=== PATIENT | female | born 1990 | race Caucasian/White ===

== ENCOUNTER → 2016-11-15 | Outpatient (CLI) | payer BC ==
[~2016-11-15] MED LIST: BCPILLS PO
== END | disposition home or self-care (01) ==
LOC: C.PAPS 09:22
PROVIDERS: ATTEND Physician Assistant
DX: Z01.419 Encounter for gynecological examination (general) (routine) without abnormal findings (principal)

== ENCOUNTER 2019-05-04 19:02 | Inpatient (IN) ==
[2019-05-04] MEDS ORDERED: OXYTOCIN 30 UNITS/500 ML BAG IV PRN ×2 (21:55→22:07)
[2019-05-04 22:16] LABS: Hematocrit (blood only) 42.7 % (37-47); Hemoglobin 14.6 g/dL (12.0-16.0); Mean Corpuscular Hemoglobin 31.5 pg (25-34); Mean Corpuscular Volume 92.2 fL (80-100); Mean Platelet Volume 10.8 fL (7.4-10.4); Platelet Count 269 K/uL (130-400); RDW Coefficient of Variation 13.8 % (11.5-14.5); RDW Standard Deviation 46.2 fL (36.4-46.3); Red Blood Count 4.63 M/uL (4.2-5.4); White Blood Count 14.21 K/uL (4.8-10.8)
[2019-05-04 22:19] LABS: Mean Corpuscular Hgb Conc 34.2 g/dL (32-36)
[2019-05-04] MEDS: LACTATED RINGER'S 1,000 ML IV PRN ×2 (22:22→23:21)
--- NOTE | 2019-05-04 22:23 | History & Physical Report ---
Date of Service May 04, 2019 Assessment & Plan (1) Normal labor: IUP at 40+ weeks in early labor with cervical change & labile BP's will admit for hydration and AROM once she is comfortable with epidural analgesia check PIH labs as well. History of Present Illness Primary Care Provider: Tiffany Greene DO Patient is a 29 yo white female EDC 04/29/19 who presents with with over 18 hours of contractions that she feels are now 5 mintues apart. no SPROM or bloody show. GBS -negative. complicated by GDM that was diet controlled. Patient has shown cervical change from 2 cm to 3 cm dilated. She denies any PIH symptoms but BP's have been labile since admission. 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 Beliefs That Will Affect Care: None marital status: Current Living Situation: Spouse Feels Safe at Home: Yes Safety Concerns: Feels Safe At This Time Smoking Status: Former smoker Tobacco Type: cigarettes ; packs per day: 0.5 ; Hx Alcohol Use: No Hx Substance Use: No Review of Systems All systems reviewed & are unremarkable except as noted in HPI & below Physical Exam Constitutional: WD/WN, vitals as above Respiratory: normal respiratory effort, lungs clear to auscultation Cardiovascular: RRR, no murmur, no edema Gastrointestinal (Abdomen): normal bowel sounds, soft, nontender, no hepatosplenomegaly Psychiatric: A+Ox3, euthymic affect Genitourinary: OB Exam Abdomen: + vertex, + estimated weight (7-8 pounds) and + irregular contractions (5-8 minutes apart) Manual OB Exam: + cervical dilation 3 cm, + cervical effacement 70% and + station -2 OB Exam Monitor Tracing: + external FHT monitor used, + external uterine monitor used, + category I and + normal FHT variability Results & Data Vital Signs (Past 12 Hours) Vital Signs Temp Pulse Resp BP 05/04/19 22:13 61 142/90 H 05/04/19 21:58 77 149/100 H 05/04/19 21:42 62 155/94 H 05/04/19 21:37 67 129/94 05/04/19 21:32 46 L 130/88 05/04/19 21:27 58 L 139/98 05/04/19 19:46 73 129/88 05/04/19 19:45 60 136/96 05/04/19 19:40 82 135/93 05/04/19 19:20 97.9 F 18 05/04/19 19:16 81 132/87 Code Status & VTE Plan VTE Prophylaxis Plan VTE Prophylaxis will be ordered: No
[2019-05-04] MEDS ORDERED: BUPIVACAINE 0.25% 30 ML VIAL ONE (22:28)
[2019-05-04] MEDS ORDERED: fentaNYL citrate 100 MCG/2 ML VIAL ONE (22:28)
[2019-05-04] MEDS ORDERED: ePHEDrine sulfate 50 MG/ML AMP ONE (22:28)
[2019-05-04] MEDS ORDERED: fentaNYL 2MCG/ML ROPIV 1.25MG/ML 100 ML BAG EPI ONE (22:28)
[2019-05-04 22:33] LABS: Creatinine Clr Calc Pharmacy 68.3 ml/min; Est GFR (African American) 83.5
--- NOTE | 2019-05-04 23:30 | Anesthesiology Consultation ---
Date of Service May 04, 2019 Assessment & Plan Chart Review Chart Review: Acceptable Risk for Labor Epidural Consults Requested none History Height/Weight Height: 5 ft 4 in Weight: 64.41 kg Allergies Allergy/AdvReac Type Severity Reaction Status Date / Time No Known Allergies Allergy Unknown Verified 05/04/19 19:18 Medications Home Medications Medication Instructions Recorded Confirmed Last Taken acetone (urine) test #50 ea 02/14/19 05/02/19 Unknown blood sugar diagnostic #125 ea 02/14/19 05/02/19 Unknown lancets #102 ea 02/14/19 05/02/19 Unknown vit-iron fum-folic ac 1 tab PO DAILY 05/04/19 05/04/19 05/04/19 [ Vitamin] Active Medications Generic Name Dose Route Start Last Admin Trade Name Freq PRN Reason Stop Dose Admin Lactated Ringer's 1,000 mls @ 125 mls/hr 05/04/19 21:55 05/04/19 23:25 Lr IV 05/06/19 21:54 125 mls/hr .Q8H PRN Infusion L&D Protocol Protocol Past Medical History Medical History History of chronic diarrhea History of constipation History of varicella Past Family History Family History Aunt Anemia Breast cancer Mother Endometriosis Uterine cancer Grandmother (Maternal) Heart murmur Father Hypertension Past Surgical History Surgical History History of wisdom tooth extraction S/P tonsillectomy and adenoidectomy Social History Smoking Status: Former smoker tobacco type: cigarettes Hx Alcohol Use: No Hx Substance Use: No substance use type: does not use Physical Exam Vital Signs Last Vital Signs Temp 36.5 C 05/04/19 21:41 Pulse 88 05/04/19 23:29 Resp 16 05/04/19 23:23 BP 141/80 H 05/04/19 23:29 Pulse Ox 96 05/04/19 23:24 Testing Laboratory Results 05/04/19 22:07 05/04/19 22:07
[2019-05-04] MEDS ORDERED: NALOXONE HCL 0.4 MG/1 ML VIAL/CARP IV PRN (23:32)
[2019-05-04] MEDS ORDERED: DiphenhydrAMINE HCL 50 MG/ML VIAL IV PRN (23:32)
[2019-05-04] MEDS ORDERED: ePHEDrine sulfate 50 MG/ML AMP IV PRN (23:32)
[2019-05-04] MEDS ORDERED: NALOXONE HCL 1 MG in SODIUM CHLORIDE 0.9% 1000ML 1,000 ML IV PRN (23:32)
[2019-05-04] MEDS ORDERED: NALBUPHINE HCL INJ 10 MG/ML AMP IV PRN (23:32)
[2019-05-04] MEDS ORDERED: fentaNYL 2MCG/ML ROPIV 1.25MG/ML 100 ML BAG EPI PRN (23:32)
[2019-05-05] MEDS ORDERED: BENZOCAINE 20% AER SPR 82.5 GM CAN EXT PRN (06:59)
[2019-05-05] MEDS ORDERED: OXYTOCIN 30 UNITS/500 ML BAG IV PRN (06:59)
[2019-05-05] MEDS ORDERED: SUPERCREAM 0.870% 15 GM JAR EXT PRN (06:59)
[2019-05-05] MEDS ORDERED: HYDROCORTISONE ACETATE 25 MG SUPP PR PRN (06:59)
[2019-05-05] MEDS ORDERED: DIPHTHERIA/TETANUS/PERTUSSIS 0.5 ML SYR/VIAL IM ONE (06:59)
[2019-05-05] MEDS ORDERED: ACETAMINOPHEN 325 MG TAB PO PRN (06:59)
[2019-05-05] MEDS ORDERED: OXYCODONE/ACETAMINOPHEN 5mg/325mg TAB PO PRN (06:59)
[2019-05-05] MEDS: PRENATAL VITAMIN 1 TAB PO SCH (08:11)
[2019-05-05] MEDS: DOCUSATE SODIUM 100 MG CAP PO SCH ×2 (08:11→20:18)
--- NOTE | 2019-05-05 08:34 | Anesthesiology Progress Note ---
Date of Service May 05, 2019 Anesthesia Post Procedure Vital Signs Vital Signs: Temp Pulse Resp BP Pulse Ox 05/05/19 08:21 75 135/86 05/05/19 08:07 71 132/81 05/05/19 07:55 20 05/05/19 07:51 36.4 C L 81 20 142/87 H 05/05/19 07:37 85 148/86 H 05/05/19 07:25 18 05/05/19 07:10 20 05/05/19 07:09 91 H 146/82 H 05/05/19 06:55 20 05/05/19 06:52 93 H 137/89 05/05/19 06:50 92 H 98 05/05/19 06:45 89 97 05/05/19 06:40 89 96 05/05/19 06:39 86 94 05/05/19 06:35 95 H 96 05/05/19 06:30 133 H 92 05/05/19 06:25 128 H 94 05/05/19 06:24 140 H 82 L 05/05/19 06:20 98 H 86 L 05/05/19 06:19 96 H 95 05/05/19 06:14 87 95 05/05/19 06:09 94 H 96 05/05/19 06:08 87 85 L 05/05/19 06:07 87 131/93 05/05/19 06:04 116 H 85 L 05/05/19 06:02 104 H 92 05/05/19 05:59 87 96 05/05/19 05:57 90 92 05/05/19 05:54 92 H 95 05/05/19 05:53 75 133/82 05/05/19 05:51 102 H 86 L 05/05/19 05:49 89 96 05/05/19 05:44 87 75 L 05/05/19 05:39 92 H 97 05/05/19 05:38 88 86 L 05/05/19 05:37 87 131/86 05/05/19 05:34 107 H 85 L 05/05/19 05:29 80 98 05/05/19 05:24 91 H 98 05/05/19 05:23 36.6 C 18 05/05/19 05:21 95 H 133/83 05/05/19 05:19 93 H 96 05/05/19 05:14 98 H 98 05/05/19 05:09 80 97 05/05/19 05:07 103 H 143/87 H 05/05/19 05:04 93 H 96 05/05/19 04:59 97 H 96 05/05/19 04:57 20 05/05/19 04:54 114 H 96 05/05/19 04:50 90 94 05/05/19 04:49 94 H 96 05/05/19 04:44 69 96 05/05/19 04:39 98 H 95 05/05/19 04:36 87 125/88 05/05/19 04:34 96 H 97 05/05/19 04:29 71 95 05/05/19 04:27 85 94 05/05/19 04:24 76 98 05/05/19 04:22 81 128/92 05/05/19 04:20 94 H 94 05/05/19 04:19 93 H 96 05/05/19 04:15 93 H 94 05/05/19 04:14 84 96 05/05/19 04:09 73 95 05/05/19 04:08 60 148/95 H 05/05/19 04:04 100 H 94 05/05/19 04:01 95 H 94 05/05/19 03:59 78 96 05/05/19 03:54 63 96 05/05/19 03:52 101 H 128/94 05/05/19 03:49 88 97 05/05/19 03:47 86 131/97 05/05/19 03:44 84 98 05/05/19 03:39 117 H 97 05/05/19 03:34 90 97 05/05/19 03:32 36.7 C 18 05/05/19 03:30 73 94 05/05/19 03:29 73 95 05/05/19 03:24 62 97 05/05/19 03:19 63 97 05/05/19 03:14 60 98 05/05/19 03:09 63 96 05/05/19 03:06 58 L 120/73 94 05/05/19 03:04 58 L 95 05/05/19 02:59 60 99 05/05/19 02:54 72 98 05/05/19 02:52 61 120/71 05/05/19 02:49 69 98 05/05/19 02:44 73 97 05/05/19 02:39 72 95 05/05/19 02:37 63 130/74 05/05/19 02:34 74 96 05/05/19 02:29 84 95 05/05/19 02:24 55 L 94 05/05/19 02:21 64 113/73 05/05/19 02:19 60 94 05/05/19 02:14 88 96 05/05/19 02:12 56 L 94 05/05/19 02:09 64 94 05/05/19 02:07 65 126/76 94 05/05/19 02:04 60 94 05/05/19 02:00 63 94 05/05/19 01:59 62 93 05/05/19 01:54 58 L 94 05/05/19 01:53 60 94 05/05/19 01:52 57 L 109/64 05/05/19 01:49 57 L 94 05/05/19 01:44 61 94 05/05/19 01:43 37.1 C 65 18 94 05/05/19 01:39 72 93 05/05/19 01:38 80 137/94 05/05/19 01:37 81 94 05/05/19 01:34 82 96 05/05/19 01:32 90 94 05/05/19 01:29 89 96 05/05/19 01:24 66 95 05/05/19 01:22 104 H 94 05/05/19 01:21 91 H 134/79 05/05/19 01:19 76 94 05/05/19 01:17 81 94 05/05/19 01:14 72 93 05/05/19 01:10 86 94 05/05/19 01:09 66 94 05/05/19 01:07 88 129/82 05/05/19 01:04 67 94 05/05/19 00:59 82 16 94 05/05/19 00:54 100 H 94 05/05/19 00:53 96 H 94 05/05/19 00:52 87 126/80 05/05/19 00:49 91 H 94 05/05/19 00:44 96 H 93 05/05/19 00:39 84 93 05/05/19 00:38 77 94 05/05/19 00:36 91 H 125/77 05/05/19 00:34 87 93 05/05/19 00:32 92 H 93 05/05/19 00:29 69 92 05/05/19 00:27 94 H 94 05/05/19 00:24 94 H 95 05/05/19 00:21 95 H 127/75 94 05/05/19 00:19 79 94 05/05/19 00:14 79 94 05/05/19 00:09 68 96 05/05/19 00:08 78 94 05/05/19 00:07 36.5 C 68 16 132/79 05/05/19 00:04 78 97 05/05/19 00:00 83 94 05/04/19 23:59 83 96 05/04/19 23:54 89 96 05/04/19 23:53 94 H 93 05/04/19 23:52 16 05/04/19 23:50 87 137/89 05/04/19 23:49 89 96 05/04/19 23:47 101 H 93 05/04/19 23:45 89 134/90 05/04/19 23:44 95 H 95 05/04/19 23:40 93 H 20 134/91 05/04/19 23:39 91 H 96 05/04/19 23:35 91 H 153/82 H 05/04/19 23:34 99 H 95 05/04/19 23:29 92 H 141/80 H 95 05/04/19 23:27 94 H 125/84 05/04/19 23:25 96 H 128/79 05/04/19 23:24 98 H 96 05/04/19 23:23 105 H 16 137/81 05/04/19 23:21 90 142/85 H 05/04/19 23:19 117 H 127/79 96 05/04/19 23:17 80 137/90 05/04/19 23:15 81 141/77 H 05/04/19 23:14 85 97 05/04/19 23:13 81 146/95 H 05/04/19 23:11 65 139/95 05/04/19 23:09 67 96 05/04/19 23:04 77 98 05/04/19 22:59 70 98 05/04/19 22:54 63 96 05/04/19 22:49 61 97 05/04/19 22:44 72 99 05/04/19 22:39 65 99 05/04/19 22:33 82 97 05/04/19 22:28 96 H 159/95 H 96 05/04/19 22:24 60 94 05/04/19 22:23 64 95 05/04/19 22:13 61 142/90 H 05/04/19 21:58 77 149/100 H 05/04/19 21:42 62 155/94 H 05/04/19 21:41 36.5 C 18 05/04/19 21:37 67 129/94 05/04/19 21:32 46 L 130/88 05/04/19 21:27 58 L 139/98 05/04/19 19:46 73 129/88 05/04/19 19:45 60 136/96 05/04/19 19:40 82 135/93 05/04/19 19:20 36.6 C 18 05/04/19 19:16 81 132/87 Pain Intensity Bilateral Abdomen: Pain Intensity: 0 Notes Mental Status: alert / awake / arousable Nausea / Vomiting: adequately controlled Pain: adequately controlled Airway Patency, RR, SpO2: stable & adequate BP & HR: stable & adequate Hydration State: stable & adequate Neuraxial Anesthesia: was administered and sensory block is resolving Anesthetic Complications: no major complications apparent and Pt Satisfied with anesthetic care
--- NOTE | 2019-05-05 08:43 | Delivery Summary ---
DATE OF OPERATION: 05/05/2019 The patient is a 29-year-old 1, P 0 white female, EDC of 04/29/2019, who presented with regular contractions. She had cervical change from her initial assessment and she was admitted. She received effective epidural analgesia. Her membranes were ruptured at 4-5 cm dilated for clear fluid. She progressed to full dilation and pushed effectively over intact perineum for delivery of a viable male infant. There was a loose nuchal cord, which was reduced at the time of delivery. The rest of the infant delivered easily and was placed on the mother's abdomen for further attention and drying. There was poor respiratory effort initially and the baby was taken to the baby bed after the cord was clamped and cut for further resuscitative measures which only required more stimulation and drying. The placenta was expressed intact with a 3-vessel cord. A first-degree vaginal perineal laceration was repaired with 3-0 chromic in the usual fashion. A 1% lidocaine was used to anesthetize the repair area as well. There was a 300 mL EBL. Mother and infant were doing well after delivery. I attest to the content of the Intraoperative Record and any orders documented therein. Any exception s are noted below.
[2019-05-05] MEDS: IBUPROFEN 600 MG TAB PO PRN ×3 (11:22→20:18)
[2019-05-06] MEDS: IBUPROFEN 600 MG TAB PO PRN ×4 (04:19→19:50)
--- NOTE | 2019-05-06 06:25 | Obstetrical Progress Note ---
Date of Service <Sadie Doe DO - Last Filed: 05/06/19 06:58> May 06, 2019 Assessment & Plan <Sadie Doe DO - Last Filed: 05/06/19 06:58> (1) Encounter for care and examination after delivery: 29 yo F PPD #1 following vaginal delivery at 40.6w, doing well and without complaints this morning. - PPD #1 - Feels well, ambulating well, voiding well. - Will continue routine care. - Will have assistance specialist see for help with . Will reassess in afternoon. - Hgb on admission was hemoconcentrated; expect drop of three points due to dilutional effect. Pt without signs or symptoms of blood loss anemia and no significant bleeding during delivery. - Following d/c will have f/u in 6 weeks. Subjective <Sadie Doe - Last Filed: 05/06/19 06:58> Elvia is a 29 yo female ; PPD # 1 following vaginal delivery at 40.6weeks; doing well this AM; no abdominal cramping/pain; voiding well; tolerating meals overnight, able to ambulate some within the room. Struggling with breast feeding and having the assistance specialist come see her. Feels baby is not latching well. Review of Systems Constitutional: denies fever, chills, sweats, headache Respiratory: denies SOB, difficulty breathing Cardiac: denies CP, chest palpitations, chest pressure Breast: denies breast pain : denies dysuria Physical Exam <Sadie Doe - Last Filed: 05/06/19 06:58> General: patient is alert and oriented, in NAD Cardiac: +S1/S2, no murmurs rubs or gallops Respiratory: lungs CTA b/l, anteriorly and posteriorly, no wheezes rales or rhonchi, no increased work of breathing, symmetric chest rise, no respiratory distress Abdomen: soft, NT, +bowel sounds Uterus: uterine fundus firm, palpable below the level of the umbilicus Lower Extremities: no LE edema or swelling, no deep calf pain, Elli's sign negative b/l Results & Data <Sadie Doe - Last Filed: 05/06/19 06:58> Vital Signs (Past 12 Hours) Vital Signs Temp Pulse Resp BP 05/06/19 03:50 36.7 C 81 18 130/92 05/05/19 23:29 36.7 C 74 20 139/68 05/05/19 19:40 36.8 C 94 H 18 133/88 Laboratory Results Laboratory Results - last 24 hr 05/06/19 05:52 WBC 13.36 H RBC 3.68 L Hgb 11.6 L D Hct 34.5 L MCV 93.8 MCH 31.5 MCHC 33.6 RDW Std Deviation 48.6 H RDW Coeff of Sukhjinder 14.2 Plt Count 215 MPV 10.6 H Medications Administered Current Medications Acetaminophen (Tylenol) 650 mg PO Q6H PRN PRN Reason: Pain/FIGUEROA/Fever Stop: 06/04/19 06:58 Benzocaine (Dermoplast Pain Relieving [place]) 1 appln EXT PRN PRN PRN Reason: Perineal Discomfort Stop: 06/04/19 06:58 Last Admin: 05/05/19 08:11 Dose: 82.5 appln Documented by: Bisacodyl (Dulcolax) 5 mg PO [facility] Stop: 05/06/19 20:01 Bisacodyl (Dulcolax) 10 mg [place] DAILY PRN PRN Reason: No BM on 2nd post- day Stop: 06/06/19 05:59 Cocaine HCl (Supercream 0.870%) 1 gm EXT BID PRN PRN Reason: Hemorrhoidal Inflammation Stop: 05/19/19 06:58 Last Admin: 05/05/19 08:11 Dose: 1 gm Documented by: Docusate Sodium (Colace) 100 mg PO DAILY@08,21 [facility] Stop: 06/04/19 07:59 Last Admin: 05/05/19 20:18 Dose: 100 mg Documented by: Hydrocortisone (Anusol Hc) 25 mg [place] BID PRN PRN Reason: Hemorrhoidal Inflammation Stop: 06/04/19 06:58 Lactated Ringer's (Lr) 1,000 mls @ 125 mls/hr IV .Q8H PRN; Protocol PRN Reason: L&D Protocol Stop: 05/06/19 21:54 Last Infusion: 05/05/19 06:39 Dose: Infused Documented by: Oxytocin (Pitocin) 30 units in 500 mls @ 333 mls/hr IV .Q1H31M PRN; Protocol PRN Reason: Bleeding Control Stop: 06/03/19 21:54 Last Titration: 05/05/19 08:18 Dose: Infused Documented by: Oxytocin (Pitocin) 30 units in 500 mls @ 1 mls/hr IV .Q24H PRN; Protocol PRN Reason: Labor Induction/Augmentation Stop: 05/06/19 22:06 Oxytocin (Pitocin) 30 units in 500 mls @ 333.333 mls/hr IV .Q1H30M PRN; Protocol PRN Reason: Bleeding Control Stop: 06/04/19 06:58 Ibuprofen (Motrin) 600 mg PO Q4H PRN PRN Reason: Pain/FIGUEROA/Cramping/Fever Stop: 06/04/19 06:58 Last Admin: 05/06/19 04:19 Dose: 600 mg Documented by: Oxycodone/Acetaminophen (Percocet 5mg/325mg) 1 tab PO Q4H PRN PRN Reason: Pain not relieved by... Stop: 05/19/19 06:58 Prenat Multivit/Product Lister/Iron/Folic Ac ( Vitamin) 1 tab PO DAILY@08 [facility] Stop: 06/04/19 07:59 Last Admin: 05/05/19 08:11 Dose: 1 tab Documented by: <Bharti Woodward MD, FACOG - Last Filed: 05/06/19 07:28> Co-Signing Physician Notes Resident Physician Supervision Note: I interviewed and examined the patient. Discussed with Dr. Mari Doe and agree with findings and plan as documented in the note. Any exceptions or clarifications are listed here: [None] Documented By: Bharti Woodward MD, FACOG Resident Activity Tracking <Sadie Doe DO - Last Filed: 05/06/19 06:58> Resident Involvement: Resident Care Provided Care Provided: OB Delivery
[2019-05-06 06:33] LABS: Hematocrit (blood only) 34.5 % (37-47); Hemoglobin 11.6 g/dL (12.0-16.0); Mean Corpuscular Hemoglobin 31.5 pg (25-34); Mean Corpuscular Hgb Conc 33.6 g/dL (32-36); Mean Corpuscular Volume 93.8 fL (80-100); Mean Platelet Volume 10.6 fL (7.4-10.4); Platelet Count 215 K/uL (130-400); RDW Coefficient of Variation 14.2 % (11.5-14.5); RDW Standard Deviation 48.6 fL (36.4-46.3); Red Blood Count 3.68 M/uL (4.2-5.4); White Blood Count 13.36 K/uL (4.8-10.8)
[2019-05-06] MEDS: PRENATAL VITAMIN 1 TAB PO SCH (08:28)
[2019-05-06] MEDS: DOCUSATE SODIUM 100 MG CAP PO SCH ×2 (08:28→20:21)
[2019-05-06] MEDS ORDERED: MEASLES, MUMPS & RUBELLA VIRUS VIAL SQ ONE (13:14)
[2019-05-06] MEDS ORDERED: bisacodyL 5 MG TABEC PO SCH (20:00)
[2019-05-07] MEDS ORDERED: bisacodyL 10 MG SUPP PR PRN (06:00)
--- NOTE | 2019-05-07 06:24 | Obstetrical Progress Note ---
Date of Service <Sadie Doe DO - Last Filed: 05/07/19 07:04> May 07, 2019 Assessment & Plan <Sadie Doe DO - Last Filed: 05/07/19 07:04> (1) Encounter for care and examination after delivery: 29 yo F PPD #2 following vaginal delivery at 40.6w, doing well and without complaints this morning. - PPD #2. - Feels well, ambulating well, voiding well. - For discharge today. - Following d/c will have f/u in 6 weeks. - Went over discharge instructions and answered all patient questions. Subjective <Sadie Doe DO - Last Filed: 05/07/19 07:04> Elvia is a 29 yo female ; PPD # 2 following vaginal delivery at 40.6weeks; doing well this AM; no abdominal cramping/pain; voiding well; tolerating meals overnight, able to ambulate some within the room. After meeting with contract negotiation specialist yesterday feels that baby is latching better. Review of Systems Constitutional: denies fever, chills, sweats, headache Respiratory: denies SOB, difficulty breathing Cardiac: denies CP, chest palpitations, chest pressure Breast: denies breast pain : denies dysuria Physical Exam <Sadie Doe DO - Last Filed: 05/07/19 07:04> General: patient is alert and oriented, in NAD Cardiac: +S1/S2, no murmurs rubs or gallops Respiratory: lungs CTA b/l, anteriorly and posteriorly, no wheezes rales or rhonchi, no increased work of breathing, symmetric chest rise, no respiratory distress Abdomen: soft, NT, +bowel sounds Uterus: uterine fundus firm, palpable below the level of the umbilicus Lower Extremities: no LE edema or swelling, no deep calf pain, Elli's sign negative b/l Results & Data <DO Preet Abrams Last Filed: 05/07/19 07:04> Vital Signs (Past 12 Hours) Vital Signs Temp Pulse Resp BP 05/06/19 23:55 36.4 C L 98 H 18 120/79 05/06/19 19:30 36.8 C 90 18 136/94 Medications Administered Current Medications Acetaminophen (Tylenol) 650 mg PO Q6H PRN PRN Reason: Pain/FIGUEROA/Fever Stop: 06/04/19 06:58 Benzocaine (Dermoplast Pain Relieving [place]) 1 appln EXT PRN PRN PRN Reason: Perineal Discomfort Stop: 06/04/19 06:58 Last Admin: 05/05/19 08:11 Dose: 82.5 appln Documented by: Bisacodyl (Dulcolax) 10 mg [place] DAILY PRN PRN Reason: No BM on 2nd post- day Stop: 06/06/19 05:59 Cocaine HCl (Supercream 0.870%) 1 gm EXT BID PRN PRN Reason: Hemorrhoidal Inflammation Stop: 05/19/19 06:58 Last Admin: 05/05/19 08:11 Dose: 1 gm Documented by: Docusate Sodium (Colace) 100 mg PO DAILY@08,21 [facility] Stop: 06/04/19 07:59 Last Admin: 05/06/19 20:21 Dose: 100 mg Documented by: Hydrocortisone (Anusol Hc) 25 mg [place] BID PRN PRN Reason: Hemorrhoidal Inflammation Stop: 06/04/19 06:58 Oxytocin (Pitocin) 30 units in 500 mls @ 333 mls/hr IV .Q1H31M PRN; Protocol PRN Reason: Bleeding Control Stop: 06/03/19 21:54 Last Titration: 05/05/19 08:18 Dose: Infused Documented by: Oxytocin (Pitocin) 30 units in 500 mls @ 333.333 mls/hr IV .Q1H30M PRN; Protocol PRN Reason: Bleeding Control Stop: 06/04/19 06:58 Ibuprofen (Motrin) 600 mg PO Q4H PRN PRN Reason: Pain/FIGUEROA/Cramping/Fever Stop: 06/04/19 06:58 Last Admin: 05/06/19 19:50 Dose: 600 mg Documented by: Oxycodone/Acetaminophen (Percocet 5mg/325mg) 1 tab PO Q4H PRN PRN Reason: Pain not relieved by... Stop: 05/19/19 06:58 Prenat Multivit/Enlisted Aircrew/Aerial Observer/Gunner/Iron/Folic Ac ( Vitamin) 1 tab PO DAILY@08 [facility] Stop: 06/04/19 07:59 Last Admin: 05/06/19 08:28 Dose: 1 tab Documented by: <Karla Loaiza, DO - Last Filed: 05/07/19 08:33> Co-Signing Physician Notes Resident Physician Supervision Note: I interviewed and examined the patient. Discussed with Dr. Sosa and agree with findings and plan as documented in the note. Any exceptions or clarifications are listed here: PPD#2 doing well. DC home today. Documented By: Karla Loaiza DO Resident Activity Tracking <Sadie Doe DO - Last Filed: 05/07/19 07:04> Resident Involvement: Resident Care Provided Care Provided: OB Delivery
[2019-05-07 07:31] LABS: Hematocrit (blood only) 36.5 % (37-47); Hemoglobin 12.1 g/dL (12.0-16.0)
[2019-05-07] MEDS: IBUPROFEN 600 MG TAB PO PRN (08:36)
[2019-05-07] MEDS: DOCUSATE SODIUM 100 MG CAP PO SCH (08:38)
[2019-05-07] MEDS: PRENATAL VITAMIN 1 TAB PO SCH (08:38)
== END 2019-05-07 19:18 | disposition home or self-care (01) | DRG 807 ==
LOC: OPB 19:02 → 4S1 19:04 → 4S2 05-05 09:20